=== PATIENT | female | born 1980 | race American Indian/Alaskan Native ===

== ENCOUNTER 2020-07-19 13:40 | Emergency (ER) | payer MEDICAID ==
[~2020-07-19] VITALS: Ht 177.8 cm; Wt 122.7 kg
[2020-07-19] MEDS ORDERED: CLAR10 MT (15:06)
[2020-07-19] MEDS ORDERED: ACETAMINOPHEN 325MG TABLET PO ONE (15:15)
[2020-07-19 15:36] VITALS: BP 141/75
== END 2020-07-19 15:38 | disposition home or self-care (01) ==
LOC: ER 13:40
DX: R51.9 Headache, unspecified (principal); J01.90 Acute sinusitis, unspecified; Z88.1 Allergy status to other antibiotic agents
CPT/HCPCS: 99282

== ENCOUNTER 2021-02-17 17:18 | Emergency (ER) | payer MEDICAID, OTHER ==
[~2021-02-17] VITALS: Ht 177.8 cm; Wt 130.0 kg
[~2021-02-17 17:18] MED LIST: CLAR10 MT
[2021-02-17] MEDS ORDERED: IBUPROFEN 600MG TABLET PO ONE (18:45)
[2021-02-17] MEDS ORDERED: MELO15TA13 MT (21:54)
[2021-02-17 22:20] VITALS: BP 156/72
== END 2021-02-17 23:21 | disposition home or self-care (01) ==
LOC: ER 17:18
DX: S83.8X2A Sprain of other specified parts of left knee, initial encounter (principal); X50.1XXA Overexertion from prolonged static or awkward postures, initial encounter; Y93.89 Activity, other specified; Y92.89 Other specified places as the place of occurrence of the external cause
CPT/HCPCS: 29505; 73560; 99283

== ENCOUNTER 2021-05-12 23:39 | Emergency (ER) | payer OTHER ==
[~2021-05-12] VITALS: Ht 177.8 cm; Wt 125.0 kg
[~2021-05-12 23:39] MED LIST changes: +MELO15TA13 MT
[2021-05-13 01:41] LABS: BASOPHILS % 0.4 % (0.0-2.0); EOSINOPHILS % 5.1 % (0.0-5.0); HEMATOCRIT. 32.7 % (36.0-48.0); HEMOGLOBIN. 10.8 g/dL (12.0-16.0); LYMPHOCYTES % 21.5 % (20.0-50.0); MEAN CORPUSCULAR VOLUME 72.9 fL (81.0-99.0); MEAN PLATELET VOLUME 8.9 fl (7.4-10.4); MONOCYTES % 6.2 % (2.0-8.0); NEUTROPHILS % 66.8 % (40.0-76.0); PLATELET 293 x1000/uL (130-400); RED BLOOD CELL COUNT 4.49 mill/uL (4.2-5.4); RED CELL DISTRIBUTION WIDTH 15.6 % (11.6-14.6)
[2021-05-13 01:43] LABS: CHLORIDE 109 mEq/L (98-107)
[2021-05-13 01:53] LABS: B-HCG QUANTITATIVE < 1 mIU/mL (<3)
[2021-05-13 02:31] LABS: CLARITY URINE CLOUDY (CLEAR); COLOR URINE YELLOW (YELLOW); KETONES URINE TRACE (NEGATIVE); LEUKOCYTE ESTERASE URINE 2+ (NEGATIVE); NITRITE URINE NEGATIVE (NEGATIVE); OCCULT BLOOD URINE 3+ (NEGATIVE); PH URINE 5.5 (4.5-8.0); PROTEIN URINE NEGATIVE (NEGATIVE); SPECIFIC GRAVITY URINE 1.028 (1.005-1.030)
[2021-05-13] MEDS ORDERED: DOXY150T5 MT (04:15)
[2021-05-13] MEDS ORDERED: DOXYCYCLINE HYCLATE 100MG CAPSULE PO ONE (04:30)
[2021-05-13] MEDS ORDERED: CEFTRIAXONE SODIUM 500 MG/VIAL IM ONE (04:30)
[2021-05-13] MEDS ORDERED: LIDOCAINE HCL 1% 20ML VIAL (Pyxis) INJ INFIL ONE (04:45)
[2021-05-13 05:56] VITALS: BP 118/71
== END 2021-05-13 06:11 | disposition home or self-care (01) ==
LOC: ER 23:39
DX: N39.0 Urinary tract infection, site not specified (principal)
CPT/HCPCS: 36415; 74176; 80053; 81003; 84702; 85025; 86850; 86900; 86901; 87086; 96372; 99284; J0696; J3490; Z7610

== ENCOUNTER 2021-09-02 12:26 | Emergency (ER) | payer OTHER, MEDICAID ==
[~2021-09-02] VITALS: Ht 177.8 cm; Wt 132.0 kg
[~2021-09-02 12:26] MED LIST changes: +DOXY150T5 MT
[2021-09-02] MEDS ORDERED: KETOROLAC 60MG/2ML VIAL IM ONE (17:45)
[2021-09-02] MEDS ORDERED: LIDOCAINE 5% PATCH TOP SCH (17:45)
[2021-09-02] MEDS ORDERED: CYCLOBENZAPRINE 10MG TABLET PO ONE (17:45)
[2021-09-02 18:18] VITALS: BP 152/91
[2021-09-02] MEDS ORDERED: CYCL10TA21 MT (18:31)
[2021-09-02] MEDS ORDERED: NAP5EC MT (18:31)
[2021-09-02] MEDS ORDERED: LIDO700A30 TP (18:31)
== END 2021-09-02 23:03 | disposition home or self-care (01) ==
LOC: ER 12:53
DX: R51.9 Headache, unspecified (principal); M79.18 Myalgia, other site; M54.2 Cervicalgia
CPT/HCPCS: 70450; 72125; 96372; 99284; J1885